=== PATIENT | male | born 1960 | race Caucasian/White ===

== ENCOUNTER 2016-02-11 09:47 | Emergency (ER) | payer OTHER ==
[2016-02-11 09:57] VITALS: BP 141/81; PULSE 98; TEMP 101; BMI 35.4
[2016-02-11] MEDS ORDERED: ACETAMINOPHEN 325 MG TABLET (FP) PO ONE (09:57)
--- NOTE | 2016-02-11 11:26 | PDOC ---
History of Present Illness - General Chief Complaint: Cold Symptoms Stated Complaint: THROAT PAIN, FLU, SOB Time Seen by Provider: 02/11/16 10:16 History Source: Patient Exam Limitations: No Limitations - History of Present Illness Timing/Duration: reports: changing over time, getting worse Past History - Past Medical History Allergies/Adverse Reactions: Allergies Allergy/AdvReac Type Severity Reaction Status Date / Time No Known Allergies Allergy Verified 02/11/16 09:56 Home Medications: Ambulatory Orders Gabapentin [Neurontin] 300 mg PO HS 04/26/14 Albuterol 0.083% Nebulizer Essence [Ventolin 0.083% Nebulizer Soln -] 1 neb NEB Q4H PRN #30 vial 02/11/16 Oseltamivir Phosphate [Tamiflu -] 75 mg PO BID #10 capsule 02/11/16 Anemia: No Asthma: Yes Cancer: No Cardiac Disorders: No CVA: No COPD: No CHF: No Dementia: No Diabetes: No GI Disorders: No Disorders: No HTN: Yes Hypercholesterolemia: No Liver Disease: No Seizures: No Thyroid Disease: No - Psycho/Social/Smoking Cessation Hx Anxiety: No Suicidal Ideation: No Smoking History: Never smoked Have you smoked in the past 12 months: No Hx Alcohol Use: No Drug/Substance Use Hx: No Substance Use Type: None Review of Systems - Review of Systems Able to Perform ROS?: Yes Is the patient limited [place] proficient: Yes Constitutional: Yes: Symptoms Reported, See HPI, Chills, Fever, Malaise HEENTM: Yes: Symptoms Reported, See HPI, Nose Congestion, Throat Pain, Difficulty Swallowing Respiratory: Yes: See HPI, Cough, Wheezing : No: Symptoms Reported Musculoskeletal: No: Symptoms Reported All Other Systems: Reviewed and Negative *Physical Exam - Vital Signs Last Vital Signs Temp Pulse Resp BP Pulse Ox 101.0 F H 98 H 20 141/81 9 L 02/11/16 09:52 02/11/16 09:52 02/11/16 09:52 02/11/16 09:52 02/11/16 09:52 - Physical Exam General Appearance: Yes: Nourished, Appropriately Dressed, Apparent Distress, Mild Distress, Moderate Distress HEENT: positive: ALDAIR, TMs Normal (congested but landmarks easily visualized), Pharyngeal Erythema, Nasal Congestion, Rhinorrhea, Sinus Tenderness. negative: Normal ENT Inspection Neck: positive: Supple, Lymphadenopathy (R), Lymphadenopathy (L). negative: Tender Respiratory/Chest: positive: Rhonchi, Wheezing (faint inspiratory wheezing but breath sounds are audible). negative: Chest Tender, Lungs Clear, Normal Breath Sounds Gastrointestinal/Abdominal: positive: Soft. negative: Tender Extremity: positive: Normal Inspection, Normal Range of Motion Integumentary: positive: Dry, Warm, Pale Neurologic: positive: community life director II-XII NML intact, Fully Oriented, Alert, Normal Mood/ Affect, Normal Response, Motor Strength 06/11 ED Treatment Course - Medications Given in the ED: ED Medications Discontinued Medications Generic Name Dose Route Start Last Admin Trade Name Vigneshq PRN Reason Stop Dose Admin Acetaminophen 650 mg 02/11/16 09:57 02/11/16 09:57 Tylenol - PO 02/11/16 09:58 650 mg NOW ONE Administration Progress Note - Progress Note Progress Note: Upper respiratory infection, probable viral and influenza. Will treat with Tamiflu and provide additional albuterol nebulizers *DC/Admit/Observation/Transfer Diagnosis at time of Disposition: Upper respiratory infection, viral - Discharge Dispostion Disposition: HOME Condition at time of disposition: Stable Admit: No - Patient Instructions Printed Discharge Instructions: DI for Viral Upper Respiratory Infection -- Adult Additional Instructions: Rest, drink lots of fluids: Teas, water, soups, Pedialyte Saltwater gargles Steamy showers/seem to face break up mucus Old-fashioned treatments help! Avoid contact with others until fevers and cough resolved as this is very contagious Lots of handwashing and good hygiene Continue [id number] medications for symptomatic relief Tylenol or Motrin for fever and pain Take all of Tamiflu as directed: 1 tab every 12 hours for 5 days Continue albuterol nebulizers every 4-6 hours for the next 2 days then as needed Followup with private physician in one to 2 days as needed or if worsening Return to emergency department for worsened symptoms, fevers, dehydration Influenza takes between 5 and 7 days for resolution To not participate in any activity, work, or school until fevers and cough are gone for at least one day - Post Discharge Activity Work/School Note: Back to Work
== END 2016-02-11 11:28 | disposition home or self-care (01) ==
LOC: JERFT 09:47 → JER 09:47 → JERFT 11:28
DX: J06.9 Acute upper respiratory infection, unspecified (principal); J45.909 Unspecified asthma, uncomplicated; I10 Essential (primary) hypertension
CPT/HCPCS: 99281-25